=== PATIENT | female | born 1990 | race Two or more races ===

== ENCOUNTER 2019-01-09 15:20 | Observation (INO) | payer BC, MEDICARE ==
[2019-01-09] MEDS ORDERED: ONDANSETRON 4 MG/2 ML VIAL IVPUSH ONE (16:05)
[2019-01-09] MEDS ORDERED: SODIUM CHLORIDE 1,000 ML IV STA ×2 (16:05→22:02)
[2019-01-09] MEDS ORDERED: morphine CARPU-JECT 4 MG/1 ML DISP.SYRIN IVPUSH ONE (16:05)
[2019-01-09] MEDS ORDERED: ACETAMINOPHEN 1000 MG/100 ML VIAL (NON FORMULARY) IVPB ONE (16:18)
[2019-01-09] MEDS ORDERED: ACETAMINOPHEN INJECTION 100 ML IVPB ONE (16:27)
[2019-01-09 17:02] LABS: BASO % 0.8 % (0-2.0); EOS % 2.2 % (0-4.5); HEMATOCRIT 38.4 % (32.4-45.2); HEMOGLOBIN 12.7 GM/dL (10.7-15.3); LYMPH % 40.3 % (8-40); MCH 29.1 pg (25.7-33.7); MCHC 33.2 g/dl (32.0-36.0); MEAN CELL VOLUME 87.7 fl (80-96); MEAN PLT VOLUME 7.6 fl (7.5-11.1); MONO % 9.5 % (3.8-10.2); NEUT % 47.2 % (42.8-82.8); RBC 4.38 M/mm3 (3.60-5.2); RDW 13.1 % (11.6-15.6); WHITE BLOOD COUNT 4.9 K/mm3 (4.0-10.0)
[2019-01-09 17:14] LABS: PLATELET COUNT 317 K/MM3 (134-434)
[2019-01-09 17:17] LABS: INR 1.04 (0.83-1.09); PROTHROMBIN TIME (PATIENT) 12.3 SEC (9.7-13.0)
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
[2019-01-09 17:24] LABS: ALBUMIN 4.4 g/dl (3.4-5.0); BILIRUBIN,TOTAL 0.6 mg/dL (0.2-1); BLOOD UREA NITROGEN 11.2 mg/dL (7-18); CALCIUM 9.5 mg/dL (8.5-10.1); CREATININE 0.7 mg/dL (0.55-1.3); POTASSIUM 4.4 mmol/L (3.5-5.1); TOT PROT 7.9 g/dl (6.4-8.2)
[2019-01-09 18:00] LABS: PH,URINE 6.5 (5.0-8.0); URINE APPEARANCE CLEAR; URINE BILIRUBIN NEGATIVE (NEGATIVE); URINE COLOR YELLOW; URINE GLUCOSE (UA) NEGATIVE (NEGATIVE); URINE KETONE 2+ (NEGATIVE); URINE LEUK ESTERASE NEGATIVE (NEGATIVE); URINE NITRITE NEGATIVE (NEGATIVE); URINE PROTEIN NEGATIVE (NEGATIVE); URINE UROBILINOGEN 0.2 mg/dL (0.2-1.0)
--- NOTE | 2019-01-09 19:12 | PDOC ---
Documentation entered by Dany Barron SCRIBE, acting as scribe for Odin Palacios MD. Odin Palacios MD: This documentation has been prepared by the Anderson rose Daniel, SCRIBE, under my direction and personally reviewed by me in its entirety. I confirm that the documentation accurately reflects all work, treatment, procedures, and medical decision making performed by me. Attending Attestation - Resident Resident Name: Severo Duarte - ED Attending Attestation I have performed the following: I have examined & evaluated the patient, The case was reviewed & discussed with the resident, I agree w/resident's findings & plan, Exceptions are as noted - HPI HPI: 01/09/19 16:26 The patient is a 28 year old female with no past medical history here today for evaluation of abdominal pain. The patient reports that she has had right lower quadrant abdominal pain since this morning, and reports that she had a positive test 2 weeks ago. Patient denies headache, lightheadedness. Denies fever, chills. Denies chest pain, shortness of breath. Denies nausea, vomiting, diarrhea. Allergies: NKA - Physicial Exam PE: 01/09/19 16:26 GENERAL: Awake, alert, and fully oriented, in no acute distress HEAD: No signs of trauma EYES: PERRLA, EOMI, sclera anicteric, conjunctiva clear ENT: Auricles normal inspection, hearing grossly normal, nares patent, oropharynx clear without exudates. Moist mucosa NECK: Normal ROM, supple, no lymphadenopathy, JVD, or masses LUNGS: Breath sounds equal, clear to auscultation bilaterally. No wheezes, and no crackles HEART: Regular rate and rhythm, normal S1 and S2, no murmurs, rubs or gallops ABDOMEN: Soft, nontender, normoactive bowel sounds. No guarding, no rebound. No masses EXTREMITIES: Normal range of motion, no edema. No clubbing or cyanosis. No cords , erythema, or tenderness BACK: No midline spinal tenderness in cervical/thoracic/lumbar region NEUROLOGICAL: Normal speech, cranial nerves intact, negative pronator drift, 5/ 5 strength in all 4 extremities, normal sensation to light touch in all 4 extremities, normal cerebellar exam, normal gait, normal reflexes and tone SKIN: Warm, Dry, normal turgor, no rashes or lesions noted. 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 Son for f/u US, mgmt, dispo
--- NOTE | 2019-01-09 19:32 | PDOC ---
*Physical Exam - Vital Signs Last Vital Signs Temp Pulse Resp BP Pulse Ox 98.3 F 94 H 18 131/83 99 01/09/19 15:30 01/09/19 15:30 01/09/19 15:30 01/09/19 15:30 01/09/19 15:30 ED Treatment Course - LABORATORY CBC & Chemistry Diagram: 01/09/19 16:22 01/09/19 16:22 - ADDITIONAL ORDERS Additional order review: Laboratory Results 01/09/19 01/09/19 01/09/19 17:48 16:22 16:22 PT with INR 12.30 INR 1.04 Sodium Potassium Chloride Carbon Dioxide Anion Gap BUN Creatinine Est GFR (CKD-EPI)AfAm Est GFR (CKD-EPI)NonAf Random Glucose Calcium Total Bilirubin AST ALT Alkaline Phosphatase Total Protein Albumin Lipase Beta HCG, Quant Urine Color Yellow Urine Appearance Clear Urine pH 6.5 Ur Specific [place] 1.012 Urine Protein Negative Urine Glucose (UA) Negative Urine Ketones 2+ H Urine Blood Negative Urine Nitrite Negative Urine Bilirubin Negative Urine Urobilinogen 0.2 Ur Leukocyte Esterase Negative Blood Type O POSITIVE Antibody Screen Negative 01/09/19 01/09/19 16:22 16:22 PT with INR INR Sodium 138 Potassium 4.4 Chloride 105 Carbon Dioxide 26 Anion Gap 7 L BUN 11.2 Creatinine 0.7 Est GFR (CKD-EPI)AfAm 137.62 Est GFR (CKD-EPI)NonAf 118.74 Random Glucose 80 Calcium 9.5 Total Bilirubin 0.6 AST 10 L ALT 14 Alkaline Phosphatase 55 Total Protein 7.9 Albumin 4.4 Lipase 87 Beta HCG, Quant 9286.9 Urine Color Urine Appearance Urine pH Ur Specific [place] Urine Protein Urine Glucose (UA) Urine Ketones Urine Blood Urine Nitrite Urine Bilirubin Urine Urobilinogen Ur Leukocyte Esterase Blood Type Antibody Screen 01/09/19 16:22 RBC 4.38 MCV 87.7 MCHC 33.2 RDW 13.1 MPV 7.6 Neutrophils % 47.2 Lymphocytes % 40.3 H Monocytes % 9.5 Eosinophils % 2.2 Basophils % 0.8 - Medications Given in the ED: ED Medications Discontinued Medications Generic Name Dose Route Start Last Admin Trade Name Freq PRN Reason Stop Dose Admin Acetaminophen 1,000 mg 01/09/19 16:18 01/09/19 16:26 Ofirmev Injection - IVPB 08/24/19 16:19 1,000 mg ONCE ONE Administration Sodium Chloride 1,000 mls @ 1,000 mls/hr 01/09/19 16:05 01/09/19 16:26 Normal Saline - IV 01/09/19 17:04 1,000 mls/hr ASDIR STA Administration Morphine Sulfate 4 mg 01/09/19 16:05 01/09/19 16:30 Morphine Injection - IVPUSH 01/09/19 16:06 Not Given ONCE ONE Ondansetron HCl 4 mg 01/09/19 16:05 01/09/19 16:30 Zofran Injection IVPUSH 01/09/19 16:06 Not Given ONCE ONE Medical Decision Making - Medical Decision Making 01/09/19 19:[address] Duarte. Patient is a 28 yo female w/ pmh of asthma who presents for evaluation of RLQ abdominal pain in the setting of 6 weeks gestational (LMP 7/1). Currently s/p US which revealed IUP however unable to visualize R ovary. Patient currently pending repeat US w/ plan for possible MRI if needed for r/o appendicitis. 01/09/19 21:27 First US revealed single IUP w/ FHR 139, 6 weeks 0 days. Unable to visualize R ovary. US repeated and able to visualize R ovary. Unable to identify appendix. Patient continues to have RLQ pain concerning for appendicitis. Patient requires MRI for further evaluation. 2mg morphine ordered for increasing abdominal pain. Patient will be admitted for MRI and pain control. 01/10/19 00:13 Attempted to call in technology manager for emergent MRI. Unable to make contact; following escalation dike supervisor reported test not possible at this time. Patient will remain in ER with plan for day MRI. 01/10/19 06:42 Patient signed out to Dr. Guajardo for further evaluation. *DC/Admit/Observation/Transfer Diagnosis at time of Disposition: Abdominal pain Qualifiers: Abdominal location: right lower quadrant Qualified Code(s): R10.31 - Right lower quadrant pain - Discharge Dispostion Condition at time of disposition: Stable Decision to Admit order: Yes - Referrals - Patient Instructions - Post Discharge Activity
[2019-01-09] MEDS ORDERED: morphine CARPU-JECT 2 MG/1 ML DISP.SYRIN IVPUSH ONE (21:03)
[2019-01-09] MEDS ORDERED: CEFTRIAXONE 1,000 MG in DEXTROSE 5%-WATER - 50 ML IVPB ONE (21:19)
[2019-01-09] MEDS ORDERED: MORPHINE SULFATE 2 MG/ML VIAL ONE (21:20)
[2019-01-09] MEDS ORDERED: CEFTRIAXONE 1 GM/50 ML BAG ONE (22:17)
--- NOTE | 2019-01-09 23:03 | HP ---
CHIEF COMPLAINT: abdomen RLQ pain PCP: Dr. Sanchez Admit to ED OBS HISTORY OF PRESENT ILLNESS: 28 year old female with PMHx of Asthma (h/o of intubations in past), arrived to ED for evaluation of RLQ abdomen pain started this afternoon, Pain is 8/10 constant non-radiating, with nausea denies vomiting. Patient is 6 weeks gestational ( LMP: 11/16). Patient is pending to see OB in 2 weeks. Patient denies any recent vaginal bleed, pain, discharge. Denies dizziness, headache, chest pain, SOB. Denies: urgency, dysuria. No recent , miscarriage. Patient went to [facility] Friday night for Asthma exacerbation, was given steroids and discharged Friday morning. ER course was notable for: (1)First US revealed single IUP w/ FHR 139, 6 weeks 0 days. Unable to visualize R ovary. (2) US repeated able to visualize R ovary. Unable to identify appendix. (3) RLQ pain concerning for appendicitis. Pending MRI for further evaluation. 2mg morphine Recent Travel: no PAST MEDICAL HISTORY: asthma PAST SURGICAL HISTORY: per patient had cyst removed from b/l ovary at age of 13 -14 Social History: Smoking:no Alcohol:no Drugs:no Family History: Father: had asthma; Mother : DM, HTN Allergies: No Known Allergies Allergy (Verified 01/09/19 15:34) HOME MEDICATIONS: REVIEW OF SYSTEMS CONSTITUTIONAL: Absent: fever, chills, diaphoresis, generalized weakness, malaise, HEENT: Absent: rhinorrhea, nasal congestion, throat pain, throat swelling, difficulty swallowing, mouth swelling, ear pain, eye pain, visual changes CARDIOVASCULAR: Absent: chest pain, syncope, palpitations, irregular heart rate , lightheadedness, peripheral edema RESPIRATORY: Absent: cough, shortness of breath, dyspnea with exertion, orthopnea, wheezing, stridor, hemoptysis GASTROINTESTINAL: + nausea, RLQ pain GENITOURINARY: Absent: dysuria, urgency, hesitancy, hematuria, flank pain, genital pain MUSCULOSKELETAL: Absent: myalgia, arthralgia, joint swelling, back pain, neck pain SKIN: Absent: rash, itching, pallor NEUROLOGIC: Absent: headache, focal weakness or paresthesias, dizziness, unsteady gait, seizure, mental status changes, bladder or bowel incontinence PSYCHIATRIC: Absent: anxiety, depression, suicidal or homicidal ideation, hallucinations. PHYSICAL EXAMINATION Vital Signs - 24 hr 01/09/19 15:30 Temperature 98.3 F Pulse Rate 94 H Respiratory 18 Rate Blood Pressure 131/83 O2 Sat by Pulse 99 Oximetry (%) GENERAL: Awake, alert, and fully oriented, in no acute distress. HEENT: NC/AT, EOMI, No JVD LUNGS: Breath sounds equal, clear to auscultation bilaterally. No wheezes, and no crackles. No accessory muscle use. HEART: Regular rate and rhythm, normal S1 and S2 without murmur, rub or gallop. ABDOMEN: +RLQ tenderness with guarding. No masses MUSCULOSKELETAL: Normal range of motion at all joints. No bony deformities or tenderness. No CVA tenderness. NEUROLOGICAL: Cranial nerves II-XII intact. Normal speech. Normal gait. PSYCHIATRIC: Cooperative. Good eye contact. SKIN: Warm, dry, normal turgor, no rashes Laboratory Results - last 24 hr 01/09/19 01/09/19 01/09/19 16:22 16:22 16:22 WBC 4.9 RBC 4.38 Hgb 12.7 Hct 38.4 MCV 87.7 MCH 29.1 MCHC 33.2 RDW 13.1 Plt Count 317 MPV 7.6 Absolute Neuts (auto) 2.3 Neutrophils % 47.2 Lymphocytes % 40.3 H Monocytes % 9.5 Eosinophils % 2.2 Basophils % 0.8 Nucleated RBC % 0 PT with INR INR Sodium 138 Potassium 4.4 Chloride 105 Carbon Dioxide 26 Anion Gap 7 L BUN 11.2 Creatinine 0.7 Est GFR (CKD-EPI)AfAm 137.62 Est GFR (CKD-EPI)NonAf 118.74 Random Glucose 80 Calcium 9.5 Total Bilirubin 0.6 AST 10 L ALT 14 Alkaline Phosphatase 55 Total Protein 7.9 Albumin 4.4 Lipase 87 Beta HCG, Quant 9286.9 Urine Color Urine Appearance Urine pH Ur Specific [place] Urine Protein Urine Glucose (UA) Urine Ketones Urine Blood Urine Nitrite Urine Bilirubin Urine Urobilinogen Ur Leukocyte Esterase Blood Type Antibody Screen 01/09/19 01/09/19 01/09/19 16:22 16:22 17:48 WBC RBC Hgb Hct MCV MCH MCHC RDW Plt Count MPV Absolute Neuts (auto) Neutrophils % Lymphocytes % Monocytes % Eosinophils % Basophils % Nucleated RBC % PT with INR 12.30 INR 1.04 Sodium Potassium Chloride Carbon Dioxide Anion Gap BUN Creatinine Est GFR (CKD-EPI)AfAm Est GFR (CKD-EPI)NonAf Random Glucose Calcium Total Bilirubin AST ALT Alkaline Phosphatase Total Protein Albumin Lipase Beta HCG, Quant Urine Color Yellow Urine Appearance Clear Urine pH 6.5 Ur Specific [place] 1.012 Urine Protein Negative Urine Glucose (UA) Negative Urine Ketones 2+ H Urine Blood Negative Urine Nitrite Negative Urine Bilirubin Negative Urine Urobilinogen 0.2 Ur Leukocyte Esterase Negative Blood Type O POSITIVE Antibody Screen Negative ASSESSMENT/PLAN: 28 year old female with PMHx of Asthma, arrived to ED for evaluation of RLQ abdomen pain started this afternoon, Pain is 8/10 constant non-radiating, with nausea denies vomiting. Patient is 6 weeks gestational (LMP: 7). r/ o appendicitis Abdomen Pain r/o appendicitis first TVUS did not visualize R ovary but showed 6wk IUP with FHR 139 US repeated able to visualize R ovary. Unable to identify appendix. - discussed patient with Dr. Headley (get MRI if positive for appendicitis patient need to be transferred speciality care) * as per ER Resident Dr. 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 , schedule MRI in AM * will admit patient to ED obs pending MRI in AM, based on finding will need surgery consult - labs wnl - given in ED: given 1L IVF, morphine, zofran, and ceftriaxone - continue with pain managment #Asthma - continue with nebulizer - continue with singular - Continue with Advair, and Sprivia Problem List - Problem (1) Abdominal pain Code(s): R10.9 - UNSPECIFIED ABDOMINAL PAIN Qualifiers: Abdominal location: right lower quadrant Qualified Code(s): R10.31 - Right lower quadrant pain (2) Asthma Code(s): J45.909 - UNSPECIFIED ASTHMA, UNCOMPLICATED Visit type - Emergency Visit Emergency Visit: Yes ED Registration Date: 01/09/19 Care time: The patient presented to the Emergency Department on the above date and was hospitalized for further evaluation of their emergent condition. - New Patient This patient is new to me today: Yes Date on this admission: 01/10/19 - Critical Care Critical Care patient: No
[2019-01-10] MEDS: DEXTROSE 5%-NORMAL SALINE 1,000 ML IV SCH ×2 (08:30→12:52)
[2019-01-10] MEDS ORDERED: PRENATAL VITAMINS W/ FOLIC ACID TABLET (FP) PO SCH (10:00)
[2019-01-10] MEDS ORDERED: morphine CARPU-JECT 4 MG/1 ML DISP.SYRIN IVPUSH ONE (10:38)
[2019-01-10] MEDS ORDERED: ACETAMINOPHEN 1000 MG/100 ML VIAL (NON FORMULARY) IVPB ONE (10:39)
[2019-01-10] MEDS ORDERED: MORPHINE SULFATE 2 MG/ML VIAL ONE (10:49)
[2019-01-10] MEDS ORDERED: ACETAMINOPHEN INJECTION 100 ML IVPB ONE (10:49)
--- NOTE | 2019-01-10 11:57 | CONSULT ---
- Consultation REQUESTING PROVIDER: Gerald DEAN CONSULT REQUEST: We have been asked to surgically evaluate this patient for abdominal pain. PCP:Karl Cueto HISTORY OF PRESENT ILLNESS: VIOLETA who is a 28 y/o female who presented to the [facility] ED after referral from a [facility] for lower abdominal pain which started yesterday; patient recently found out she was by home testing; she has nausea but no vomiting; she ? has had this before ?; she has a h/o b/l ovarian cystectomy; she denies any other GI//THERMAL ENGINEER c/o's; she is hungry and wants to eat. PMHx: asthma PSHx: ovarian cystectomy Home Medications Medication Instructions Recorded Albuterol 0.083% Nebulizer Lela 1 neb NEB Q4H PRN 01/10/19 [Ventolin 0.083%] Fluticasone/Salmeterol [Advair 1 each IH ASDIR 01/10/19 250-50 Diskus] Montelukast Sodium [Singulair] 10 mg PO DAILY 01/10/19 Tiotropium [place] [Spiriva] 1 inh IH DAILY 01/10/19 Allergies Allergy/AdvReac Type Severity Reaction Status Date / Time aspirin Allergy Verified 01/09/19 22:23 NSAIDS (Non-Steroidal Allergy Verified 01/09/19 22:23 Anti-Inflamma shrimp Allergy Verified 01/09/19 22:23 Sulfa (Sulfonamide Allergy Verified 01/09/19 22:23 Antibiotics) REVIEW OF SYSTEMS: CONSTITUTIONAL: Absent: fever, chills, diaphoresis, generalized weakness, malaise, loss of appetite, weight change CARDIOVASCULAR: Absent: chest pain, syncope, palpitations, irregular heart rate, lightheadedness , peripheral edema RESPIRATORY: Present: dyspnea with exertion, wheezing, stridor, GASTROINTESTINAL: Absent: abdominal pain, abdominal distension, nausea, vomiting, diarrhea, constipation, melena, hematochezia GENITOURINARY: Absent: dysuria, frequency, urgency, hesitancy, hematuria, flank pain, genital pain MUSCULOSKELETAL: Absent: myalgia, arthralgia, joint swelling, back pain, neck pain SKIN: Absent: rash, itching, pallor HEMATOLOGIC/IMMUNOLOGIC: Absent: easy bleeding, easy bruising, lymphadenopathy NEUROLOGIC: Absent: headache, focal weakness, paresthesias, dizziness, unsteady gait, seizure, mental status changes, bladder or bowel incontinence PSYCHIATRIC: Absent: anxiety, depression, suicidal or homicidal ideation, hallucinations. PHYSICAL EXAM: GENERAL: Awake, alert, and fully oriented, in no acute distress. HEAD: Normal with no signs of trauma. EYES: sclera anicteric, conjunctiva clear. NECK: Normal ROM, supple without lymphadenopathy, JVD, or masses. ABDOMEN: Soft, tender RLQ/SP/?LLQ, not distended, normoactive bowel sounds, ?? guarding, no rebound, no masses. No organomegaly. No hernias. Tender over right ASIS and pain w/ ROM at the waist/hips. Rovsins/psoas and obturaotor signs are NOT present; she has ? r flank tenderness. MUSCULOSKELETAL: Normal ROM at all joints. No bony deformities or tenderness. No CVA tenderness. UPPER EXTREMITIES: 2+ pulses, warm, well-perfused. No cyanosis. Cap refill <2 seconds. No peripheral edema. LOWER EXTREMITIES: 2+ pulses, warm, well-perfused. No calf tenderness. No peripheral edema. NEUROLOGICAL: Normal speech, gait not observed. PSYCH: Cooperative. Good eye contact. Appropriate mood and affect. SKIN: Warm, dry, normal turgor, no rashes or lesions noted. Vital Signs Temperature 97.7 F 01/10/19 10:40 Pulse Rate 100 H 01/10/19 10:40 Respiratory Rate 22 H 01/10/19 10:40 Blood Pressure 116/61 01/10/19 10:40 O2 Sat by Pulse Oximetry (%) 98 01/10/19 10:40 Lab Results WBC 4.9 K/mm3 (4.0-10.0) 01/09/19 16:22 RBC 4.38 M/mm3 (3.60-5.2) 01/09/19 16:22 Hgb 12.7 GM/dL (10.7-15.3) 01/09/19 16:22 Hct 38.4 % (32.4-45.2) 01/09/19 16:22 MCV 87.7 fl (80-96) 01/09/19 16:22 MCHC 33.2 g/dl (32.0-36.0) 01/09/19 16:22 RDW 13.1 % (11.6-15.6) 01/09/19 16:22 Plt Count 317 K/MM3 (134-434) 01/09/19 16:22 Sodium 138 mmol/L (136-145) 01/09/19 16:22 Potassium 4.4 mmol/L (3.5-5.1) 01/09/19 16:22 Chloride 105 mmol/L (98-107) 01/09/19 16:22 Carbon Dioxide 26 mmol/L (21-32) 01/09/19 16:22 Anion Gap 7 MMOL/L (8-16) L 01/09/19 16:22 BUN 11.2 mg/dL (7-18) 01/09/19 16:22 Creatinine 0.7 mg/dL (0.55-1.3) 01/09/19 16:22 Random Glucose 80 mg/dL (74-106) 01/09/19 16:22 Calcium 9.5 mg/dL (8.5-10.1) 01/09/19 16:22 Blood Type O POSITIVE 01/09/19 16:22 Antibody Screen Negative 01/09/19 16:22 INR 1.04 (0.83-1.09) 01/09/19 16:22 w/u to date reviewedin cluding US exams. IMP: PLAN: Suggest NPO/IVF/MRI pelvis; will f/u. David Headley MD FACS
[2019-01-10] MEDS ORDERED: ALBUTEROL SO4 8 GM HFA INHALER IH PRN ×2 (13:26→13:33)
[2019-01-10] MEDS: FLUTICASONE/SALMETEROL 100 MCG/50 MCG DISKUS IH SCH ×2 (13:27→22:17)
[2019-01-10] MEDS ORDERED: MONTELUKAST NA 10 MG TABLET PO SCH (13:30)
[2019-01-10] MEDS ORDERED: TIOTROPIUM BROMIDE 2.5 MCG (SPIRIVA) RESPIMAT INHALER IH SCH (13:30)
--- NOTE | 2019-01-10 13:43 | PN ---
Progress Note (short form) - Note Progress Note: Subjective: No fever or chills now but had subjective fevers at home. Abd pain in RLQ and RUQ . no N/V . Objective: Vital Signs: Last Vital Signs Temp Pulse Resp BP Pulse Ox 97.7 F 100 H 22 H 116/61 98 01/10/19 10:40 01/10/19 10:40 01/10/19 10:40 01/10/19 10:40 01/10/19 10:40 Laboratory Results - last 24 hr 01/09/19 01/09/19 01/09/19 16:22 16:22 16:22 WBC 4.9 RBC 4.38 Hgb 12.7 Hct 38.4 MCV 87.7 MCH 29.1 MCHC 33.2 RDW 13.1 Plt Count 317 MPV 7.6 Absolute Neuts (auto) 2.3 Neutrophils % 47.2 Lymphocytes % 40.3 H Monocytes % 9.5 Eosinophils % 2.2 Basophils % 0.8 Nucleated RBC % 0 PT with INR INR Sodium 138 Potassium 4.4 Chloride 105 Carbon Dioxide 26 Anion Gap 7 L BUN 11.2 Creatinine 0.7 Est GFR (CKD-EPI)AfAm 137.62 Est GFR (CKD-EPI)NonAf 118.74 Random Glucose 80 Calcium 9.5 Total Bilirubin 0.6 AST 10 L ALT 14 Alkaline Phosphatase 55 Total Protein 7.9 Albumin 4.4 Lipase 87 Beta HCG, Quant 9286.9 Urine Color Urine Appearance Urine pH Ur Specific [place] Urine Protein Urine Glucose (UA) Urine Ketones Urine Blood Urine Nitrite Urine Bilirubin Urine Urobilinogen Ur Leukocyte Esterase Blood Type Antibody Screen 01/09/19 01/09/19 01/09/19 16:22 16:22 17:48 WBC RBC Hgb Hct MCV MCH MCHC RDW Plt Count MPV Absolute Neuts (auto) Neutrophils % Lymphocytes % Monocytes % Eosinophils % Basophils % Nucleated RBC % PT with INR 12.30 INR 1.04 Sodium Potassium Chloride Carbon Dioxide Anion Gap BUN Creatinine Est GFR (CKD-EPI)AfAm Est GFR (CKD-EPI)NonAf Random Glucose Calcium Total Bilirubin AST ALT Alkaline Phosphatase Total Protein Albumin Lipase Beta HCG, Quant Urine Color Yellow Urine Appearance Clear Urine pH 6.5 Ur Specific [place] 1.012 Urine Protein Negative Urine Glucose (UA) Negative Urine Ketones 2+ H Urine Blood Negative Urine Nitrite Negative Urine Bilirubin Negative Urine Urobilinogen 0.2 Ur Leukocyte Esterase Negative Blood Type O POSITIVE Antibody Screen Negative Physical Exam: NAD. CV: RRR. no MRG . Lungs: CTAB Abd: soft, ND, TTP i n RUQ and RLQ , with no rebound tenderness or guarding. NL BS . Neg Rofsing. + McBurney . Neg Obturator signs Ext : No edema or erythema Assessment/Plan: 28 y/o lady with h/o removal of ovarian cysts, , and PUD, and asthma, who presented with abd pain 1- Abd pain in a lady. Unclear source yet. - due to pain in RUQ, will get an US of RUQ to r/o cholecystitis - MRI of pelvis to evaluate appendix and ovaries - NPO - IVF - appreciate Dr. 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 - cont her home meds 3- 6 week : - start vitamin - has an poointment with [facility] 4- DVT PX : Scds for now. avoid chemical prophylaxis awaiting results of MRI Visit type - Emergency Visit Emergency Visit: Yes ED Registration Date: 01/09/19 Care time: The patient presented to the Emergency Department on the above date and was hospitalized for further evaluation of their emergent condition. - New Patient This patient is new to me today: Yes Date on this admission: 01/10/19 - Critical Care Critical Care patient: No
[2019-01-10 18:38] VITALS: TEMP 98.4; BMI 24.4
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
--- NOTE | 2019-01-10 22:32 | DS ---
Physical Exam: SUBJECTIVE: Patient seen and examined 28 y/o F, 6 week , here for abdominal pain. Pt was upset for the care she received and chose to leave AMA. OBJECTIVE: Vital Signs Period Temp Pulse Resp BP Sys/Buenrostro Pulse Ox Last 24 Hr 97.7 F-98.4 F 82-100 18- 114-121/61-77 98-100 PHYSICAL EXAM GENERAL: The patient is awake, alert, and fully oriented, in no acute distress. LABS CBC, BMP 01/09/19 16:22 01/09/19 16:22 HOSPITAL COURSE: Date of Admission:01/09/19 Date of Discharge: 01/10/19 28 y/o F, 6 week , h/o removal of ovarian cysts, and PUD, and asthma, who presented with abdominal pain, while she was here, she had multiple U/S that didn't show anything significant and plan was to get an MRI but before it could be done, pt wanted to leave AMA. Pt signed and left AMA, after refusing treatment not limited to but including Ultrasound, MRI and treatment. We explained the possible complications of refusing treatment, including potential worsening of condition, complications, surgeries, infections, diseases , loss of and other life threatening issues, including . Pt verified she was not satisfied with her care at the hospital and would like to seek out treatment else where. Discharge Summary Reason For Visit: ABDOMINAL PAIN Current Active Problems Abdominal pain (Acute) Asthma (Acute) Condition: Stable - Instructions - Home Medications Comprehensive Discharge Medication List: Ambulatory Orders Albuterol Sulfate Inhaler - [Ventolin Hfa Inhaler -] 1 - 2 inh PO Q4H PRN Fluticasone/Salmeterol [Advair 250-50 Diskus] 1 each IH ASDIR 01/10/19 Montelukast Sodium [Singulair] 10 mg PO DAILY 01/10/19 Tiotropium [place] [Spiriva] 1 inh IH DAILY 01/10/19 ATTENDING PHYSICIAN STATEMENT I saw and evaluated the patient. I reviewed the resident's note and discussed the case with the resident. I agree with the resident's findings and plan as documented. SUBJECTIVE: OBJECTIVE: ASSESSMENT AND PLAN:
[2019-01-10 23:02] VITALS: BP 134/64; PULSE 91
--- NOTE | 2019-01-11 07:33 | DS ---
Physical Examination Vital Signs: Vital Signs Temperature 98.4 F 01/10/19 21:00 Pulse Rate 91 H 01/10/19 21:00 Respiratory Rate 16 01/10/19 21:00 Blood Pressure 134/64 01/10/19 21:00 O2 Sat by Pulse Oximetry (%) 98 01/10/19 18:39 Labs: CBC, BMP 01/09/19 16:22 01/09/19 16:22 Discharge Summary Reason For Visit: ABDOMINAL PAIN Hospital Course: 28 y/o lady with h/o ovarian cysts, asthma, and ( 6 weeks) , who presented with abd pain in RLQ and RUQ. she was admitted, and TV US was done twice but was not able to visualize the right ovary. due to tenderness in RUQ she got Abd US which showed nl gall bladder and no signs of cholecystitis. US did not include RLQ despite instructions. Pelvic MRI w/o contrast was ordered, and the consent form was signed by the patient after enplaning to her that MRI is the safest imaging in , given that human studies did not show any adverse effects on mom or fetus. Once patient went down to MRI, she refused MRI after discussion with Tech. US of ABd ( to include RLQ) and repeat TV US were ordered. TVUS was done and results are pending at this time. AIRPORT GUIDE, returned the call yesterday evening, and wanted to evaluate her. she left AMA at 10 pm last night. Condition: Guarded - Instructions Disposition: AGAINST MEDICAL ADVICE - Home Medications Comprehensive Discharge Medication List: Ambulatory Orders Albuterol Sulfate Inhaler - [Ventolin Hfa Inhaler -] 1 - 2 inh PO Q4H PRN Fluticasone/Salmeterol [Advair 250-50 Diskus] 1 each IH ASDIR 01/10/19 Montelukast Sodium [Singulair] 10 mg PO DAILY 01/10/19 Tiotropium [place] [Spiriva] 1 inh IH DAILY 01/10/19 This patient is new to me today: No Emergency Visit: Yes ED Registration Date: 01/09/19 Care time: The patient presented to the Emergency Department on the above date and was hospitalized for further evaluation of their emergent condition. Critical Care patient: No - Discharge Referral Referred to [facility] No
== END 2019-01-10 22:30 | disposition left against medical advice (07) ==
LOC: JER 15:20 → INTOOBSV 21:35 → JERBED 21:35 → J6S 01-10 11:19
PROVIDERS: ADMIT Internal Medicine; ATTEND Internal Medicine
PROC: 3E03329 Introduction of Other Anti-infective into Peripheral Vein, Percutaneous Approach (ICD-10-PCS; principal; 2019-01-09)
PROC: 3E033NZ Introduction of Analgesics, Hypnotics, Sedatives into Peripheral Vein, Percutaneous Approach (ICD-10-PCS; 2019-01-09)
PROC: 3E0337Z Introduction of Electrolytic and Water Balance Substance into Peripheral Vein, Percutaneous Approach (ICD-10-PCS; 2019-01-09)
PROC: 3E033GC Introduction of Other Therapeutic Substance into Peripheral Vein, Percutaneous Approach (ICD-10-PCS; 2019-01-09)
DX: O26.891 Other specified pregnancy related conditions, first trimester (principal); Z3A.01 Less than 8 weeks gestation of pregnancy; R10.31 Right lower quadrant pain; J45.909 Unspecified asthma, uncomplicated; Z88.2 Allergy status to sulfonamides; Z88.6 Allergy status to analgesic agent; Z91.013 Allergy to seafood
CPT/HCPCS: 36415; 76700-TC; 76817-TC; 76830-TC; 76856-TC; 80053; 81003; 83690; 84702; 85025; 85610; 86850; 86900; 86901; 87086; 96361; 96365; 96375; 96376; 99285-25; G0378; J0131; J7030